=== PATIENT | male | born 1940 | race Caucasian/White ===

== ENCOUNTER 2016-06-23 16:10 | Inpatient (IN) | payer MEDICARE ==
[~2016-06-23] VITALS: Ht 175.2 cm; Wt 70.0 kg
--- NOTE | ~2016-06-23 | PR ---
[place], [place] PROGRESS NOTE NAME: MILTON DIALLO [facility] #: [id number] UNIT #: [id number] ROOM: 523 DOCTOR: SAMMI ARTHUR MD BIRTHDATE: [birth year] DOS: 06/25/2016 SUBJECTIVE: The patient is about the same, does not have any new changes. He still has a cough and shortness of breath. PHYSICAL EXAMINATION: VITAL SIGNS: Blood pressure is 105/54, pulse of 102, respirations 20, temperature 97.3. LUNGS: Diminished breath sounds. HEART: Regular. ABDOMEN: Obese, soft. PEG tube in place. EXTREMITIES: Without any edema. CT of the chest was abnormal with a large cavitary mass with extension suggestive of lymphangitic spread of the tumor. ASSESSMENT AND PLAN: 1. The patient admitted with acute hypoxic respiratory failure from underlying lymphangitic pneumonia from postobstructive pneumonia from underlying malignancy. The patient is on IV antibiotics, which I will continue. 2. CT of the chest showing 5.9 cm cavitary mass. Overall prognosis remains poor and guarded. I have not given the patient the news yet, wait for the family to come, I will discuss with them first as regards to what they would like me to do. 3. Adult failure to thrive. The patient is getting weaker and may benefit from short-term longterm care. PT/OT and social service consult is obtained. SAMMI ARTHUR MD CM:PNTRANS [phone] SAMMI ARTHUR MD 08/02/16 1419 interface
--- NOTE | ~2016-06-23 | PR ---
[place], [place] PROGRESS NOTE [facility] [id number] UNIT #: [id number] ROOM: 523 DOCTOR: SAMMI ARTHUR MD BIRTHDATE: [birth year] DOS: SUBJECTIVE: The patient is doing fine without any new complaints, but he continues to be weak and complains of not feeling that great after being in the hospital on antibiotics for several days. OBJECTIVE: VITAL SIGNS: Graphic trend shows pressure 103/61, pulse of 115, respirations 20, temperature 98.1. LUNGS: Clear. HEART: Irregular. ABDOMEN: Soft. EXTREMITIES: Without any edema. PEG tube in place. ASSESSMENT AND PLAN: 1. 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 Overall, prognosis remains poor and guarded. Discussed with the patient this morning. Hospice was advised. We will ask hospice to see him in sometime next week and arrangements will be made. 2. Lymphangitic pneumonia, on IV antibiotics, which will be continued. SAMMI ARTHUR MD CM:PNTRANS [phone] SAMMI ARTHUR MD 06/26/16 2154 interface
--- NOTE | ~2016-06-23 | DS ---
[place], [place] DISCHARGE SUMMARY NAME: MILTON DIALLO UNIT #: [id number] ROOM: 523 DOCTOR: SAMMI ARTHUR MD BIRTHDATE: [birth year] DOS: 06/28/2016 DIAGNOSES: 1. 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 2. Recent PEG tube placement. 3. Lymphangitis pneumonia. 4. Acute hypoxic respiratory failure. 5. Cardiomyopathy without any evidence of CHF. 6. Coronary artery disease status post CABG. HOSPITAL COURSE: The patient is a 75-year-old, known to us. He was seen in the office last week. He was found to have hypoxic respiratory failure, was prescribed oxygen and antibiotics. A chest x-ray was ordered, which showed a left upper lobe pneumonia and the patient therefore was admitted. This most likely is Gram-negative. After admission, the patient was placed on IV antibiotics, oxygen supplementation and breathing treatments. CT of the chest was ordered for confirmation. The CT chest showed a large almost 5.9 cm mass with cavitation, which extends into the hilum as well as the anterior chest wall, this most likely is underlying mets to the lungs from the CA of the esophagus. He has not been eating and has been getting PEG tube feeding 24 hours here because his GI doctor did advise that he should not be eating any food because of recent surgery. The patient is overall stable and improved. Condition was discussed with the patient as well as the family and he has agreed to go on hospice. Social service has been consulted for that and the patient should be able to go home once the hospice is arranged. DISCHARGE MEDICATIONS: Will be the same as on home medications, which will be aspirin 325, DuoNeb q.i.d., Asmanex daily, MiraLax 17 grams daily, lisinopril 1.25 daily, metoprolol 12.5 daily, Plavix 75 daily, atorvastatin 40 daily, Robitussin 10 mL q.4, Remeron 30 at bedtime. [place], [place] DISCHARGE SUMMARY NAME: MILTON DIALLO UNIT #: [id number] ROOM: 523 DOCTOR: SAMMI ARTHUR MD BIRTHDATE: [birth year] SAMMI ARTHUR MD CM:MIAN [phone] SAMMI ARTHUR MD 06/28/16 1135 interface
--- NOTE | ~2016-06-23 | PR ---
[place], [place] PROGRESS NOTE [id number] UN[facility] #: [id number] ROOM: 523 DOCTOR: SAMMI ARTHUR MD BIRTHDATE: [birth year] DOS: SUBJECTIVE: The patient is about the same, does not have any new complaints. OBJECTIVE: VITAL SIGNS: Graphic trend shows a pressure of 94/54, pulse of 110, respirations 22, temperature 97.6. LUNGS: Diminished breath sounds, clear. HEART: Irregular. ABDOMEN: Soft, scaphoid with the PEG tube in place. EXTREMITIES: Without any edema. ASSESSMENT AND PLAN: 1. CA esophagus, status post chemoradiation. 2. Mets to the lungs. The patient to go on hospice care to home. 3. COPD with acute hypoxic respiratory failure. Oxygen supplementation has been ordered as well as tube feeding. The patient is encouraged to eat pudding and ice cream. SAMMI ARTHUR MD CM:PNTRANS [phone] SAMMI ARTHUR MD 06/30/16 0457 interface
--- NOTE | ~2016-06-23 | PR ---
[place], [place] PROGRESS NOTE NAME: MILTON DIALLO [facility] #: [id number] UNIT #: [id number] ROOM: 523 DOCTOR: SAMMI ARTHUR MD BIRTHDATE: [birth year] DOS: 06/27/2016 SUBJECTIVE: The patient is upset about his diagnosis. He suggested that he go back and see his oncologist, but he declined. He denies having any chest pains or palpitations this morning. He does not have any fever or chills, has a slight cough. OBJECTIVE: VITAL SIGNS: Graphic trend shows a pressure of 100/55, pulse of 103, respirations 20, temperature 98.4. LUNGS: Diminished breath sounds, clear. HEART: Regular. ABDOMEN: Soft. ASSESSMENT AND PLAN: 1. Lymphangitic pneumonia on IV antibiotics. 2. Carcinoma of the esophagus with left upper lobe cavitary mass which appears to be a metastatic change. The patient wants to be kept comfortable. We will ask hospice to see him. 3. Cardiomyopathy, stable without any evidence of congestive heart failure. SAMMI ARTHUR MD CM:PNTRANS [phone] SAMMI ARTHUR MD 06/27/161999 interface
--- NOTE | ~2016-06-23 | PR ---
[place], [place] PROGRESS NOTE NAME: MILTON DIALLO UNIT #: [id number] ROOM: 523 DOCTOR: SAMMI ARTHUR MD BIRTHDATE: [birth year] DOS: SUBJECTIVE: The patient is doing better this morning as far as emotion is concerned. He is talking a little bit more and he is agreeable to going to his house with hospice. OBJECTIVE: VITAL SIGNS: Graphic trend shows a pressure of 118/58, pulse of 110, respirations 22, temperature 97.8. LUNGS: Clear. HEART: Regular. ABDOMEN: Soft. PEG tube in place. EXTREMITIES: Without any edema. He has compression sleeves on both legs. ASSESSMENT AND PLAN: 1. 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 Overall, prognosis remains poor and guarded. 2. Laryngitic pneumonia, on antibiotics, this should be converted to p.o. The patient has agreed to go on hospice. Arrangements will be made today and then the patient to go home today. SAMMI ARTHUR MD CM:PNTRANS [phone] SAMMI ARTHUR MD 06/28/162150 interface
--- NOTE | ~2016-06-23 | WRIGHTHP ---
[place], [place] PATIENT HISTORY AND PHYSICAL EXAM NAME: MILTON DIALLO [facility] #: [id number] UNIT #: [id number] ROOM: 523 DOCTOR: SAMMI ARTHUR MD BIRTHDATE: [birth year] DOS: 06/23/2016 HISTORY OF PRESENT ILLNESS: This patient is 75 years old. The patient is very well known to us, I had seen him about a week ago at the office. He was hypoxic and short of breath. Oxygen was prescribed. Chest x-ray ordered showed left upper lobe pneumonia and so he is admitted with diagnosis of acute hypoxic respiratory failure, left upper lobe pneumonia. The patient feels a little bit better this morning. Does not have any new complaints. His mouth is very dry and seems to have a hard time communicating. PAST MEDICAL HISTORY: Significant for, 1. CA of the esophagus, status post chemoradiation. He has completed the course, status post surgery and XRT chemo. 2. Cardiomyopathy. 3. Chronic kidney disease. 4. Gastroesophageal reflux disease. 5. Coronary artery disease, status post CABG. 6. Benign hypertension. MEDICATIONS: Lisinopril 1.25, Coreg, Plavix, and aspirin. SOCIAL HISTORY: Smoking many years ago. He has quit smoking several years ago. Denies using any alcohol. PHYSICAL EXAMINATION: GENERAL: He is awake and alert and oriented, very tired looking. VITAL SIGNS: Graphic trend shows a pressure of 98/60, pulse of 117, respirations 18, temperature 97.2. LUNGS: Diminished breath sounds. No wheezes, rales or rhonchi heard. HEART: Regular. ABDOMEN: Obese, soft, nontender with a PEG tube in place. EXTREMITIES: Trace edema bilaterally. ASSESSMENT AND PLAN: 1. A 75-year-old presents with left upper lobe pneumonia. The patient is placed on IV antibiotics. Routine labs have been ordered. 2. Acute hypoxic respiratory failure. Oxygen supplementation has been prescribed along with breathing treatments. 3. Carcinoma of the esophagus, status post PEG tube placement. His surgeon does not want him to take anything by mouth, so we will increase the tube feeding q.24 hours. 4. Cardiomyopathy, compensated without any evidence of congestive heart failure this morning. 5. Electrolyte imbalance with elevated sodium and chloride. We will go ahead and increase the water intake in the PEG tube. [place], [place] PATIENT HISTORY AND PHYSICAL EXAM NAME: MILTON DIALLO UNIT #: [id number] ROOM: 523 DOCTOR: SAMMI ARTHUR MD BIRTHDATE: [birth year] SAMMI ARTHUR MD CM:HISPHYS:PATIENT HISTORY AND PHYSICAL EXAMINATION [id number] SAMMI ARTHUR MD 06/24/16 1008 interface
[~2016-06-23 16:10] MED LIST: ASMANEX HF100 MCG/Ac INH; ASPIR-TRIN325 MG PO; COLACE100 MG PO; COREG6.25 MG PO; DUONEB 3 MG/3 ML3 M1 NEB; LASIX20 MG PO; LISINOPRIL2.5 MG PO; MIRALAX17 GM PO; PERCOCET 325 MG1 TA2 PO; Zofran4 MG PO
[2016-06-23 16:30] VITALS: BP 102/50
[2016-06-23 18:08] LABS: BASO % 0.2 % (0.0-1.0); EOS # 0.1 10*3/uL (0.0-0.4); EOS % 2.2 % (1.0-4.0); HEMOGLOBIN 8.5 g/dl (14.0-18.0); IG # 0.1 10*3/uL (0.0-0.1); LYMPH # 0.5 10*3/uL (1.3-4.4); LYMPH % 10.1 % (27.0-41.0); MEAN CELL VOLUME 96.6 fl (80.0-94.0); MEAN CORPUSCULAR HGB 29.3 pg (27.0-31.0); MEAN CORPUSCULAR HGB CONC 30.4 g/dl (33.0-37.0); MEAN PLATELET VOLUME 11.2 fl (9.6-12.3); MONO # 0.3 10*3/uL (0.1-1.0); MONO % 5.5 % (3.0-9.0); NEUT # 4.1 10*3/uL (2.3-7.9); PLATELET COUNT AUTOMATED 141 10*3/uL (130-400); RED CELL DISTRI WIDTH 20.8 % (0-14.5); WHITE BLOOD COUNT 5.1 10*3/uL (4.8-10.8)
[2016-06-23 18:23] LABS: BUN 30 mg/dl (7-24); CARBON DIOXIDE 29 mmol/L (21-32); CHLORIDE 109 mmol/L (98-107); EST GLOM FILT AFRICAN AMERICAN > 60 ml/min; GLUCOSE 109 mg/dL (65-99); POTASSIUM 3.9 mmol/L (3.5-5.1); SODIUM 147 mmol/L (136-145)
[2016-06-23] MEDS ORDERED: ZESTRIL2.5 MG PO (19:42)
[2016-06-23] MEDS ORDERED: PLAVIX75 M1 PO (19:43)
[2016-06-23] MEDS ORDERED: LOPRESSOR25 MG PO (19:43)
[2016-06-23] MEDS ORDERED: ATORVASTATIN CA40 M1 PO (19:43)
[2016-06-23] MEDS ORDERED: TRIMOX,POL250 MG/5 M PO (19:45)
[2016-06-23] MEDS ORDERED: ROBITUSSIN DM120 ML PO (19:46)
[2016-06-23 20:00] VITALS: BP 116/70; BP 89/70
[2016-06-24] VITALS: BP 110/50
[2016-06-24 08:00] VITALS: BP 98/60
[2016-06-24] MEDS ORDERED: REMERON30 M1 PO (11:41)
[2016-06-24 12:00] VITALS: BP 101/61
[2016-06-24 16:00] VITALS: BP 137/62
[2016-06-24 20:00] VITALS: BP 112/62
[2016-06-25] VITALS: BP 105/54
[2016-06-25 08:00] VITALS: BP 118/60
[2016-06-25 09:18] LABS: EST GLOM FILT AFRICAN AMERICAN > 60 ml/min
[2016-06-25 12:00] VITALS: BP 116/71
[2016-06-25 16:00] VITALS: BP 106/66
[2016-06-25 20:00] VITALS: BP 100/64
[2016-06-26] VITALS: BP 103/61
[2016-06-26 07:00] LABS: BUN 20 mg/dl (7-24); EST GLOM FILT AFRICAN AMERICAN > 60 ml/min
[2016-06-26 08:00] VITALS: BP 106/58
[2016-06-26 12:00] VITALS: BP 122/66
[2016-06-26 16:00] VITALS: BP 98/59
[2016-06-26 20:00] VITALS: BP 105/58
[2016-06-27] VITALS: BP 94/50
[2016-06-27 05:00] VITALS: BP 100/55
[2016-06-27 08:00] VITALS: BP 123/66
[2016-06-27 12:00] VITALS: BP 125/77
[2016-06-27 16:00] VITALS: BP 120/52
[2016-06-27 20:00] VITALS: BP 137/50
[2016-06-28] VITALS: BP 100/60
[2016-06-28 08:00] VITALS: BP 118/58
[2016-06-28 12:00] VITALS: BP 118/60
[2016-06-28 16:00] VITALS: BP 118/60
[2016-06-28 20:00] VITALS: BP 101/56
[2016-06-29] VITALS: BP 94/54
[2016-06-29 08:00] VITALS: BP 95/54
[2016-06-29 08:08] LABS: BUN 17 mg/dl (7-24); EST GLOM FILT AFRICAN AMERICAN > 60 ml/min
[2016-06-29 11:52] VITALS: BP 104/58
== END 2016-06-29 14:08 | disposition hospice, home (50) | DRG 177 ==
LOC: 5E 16:10
PROVIDERS: Internal Medicine
DX: J15.6 Pneumonia due to other Gram-negative bacteria (principal); J96.01 Acute respiratory failure with hypoxia; C15.9 Malignant neoplasm of esophagus, unspecified; C78.00 Secondary malignant neoplasm of unspecified lung; I42.9 Cardiomyopathy, unspecified; J44.9 Chronic obstructive pulmonary disease, unspecified; I89.1 Lymphangitis; I12.9 Hypertensive chronic kidney disease with stage 1 through stage 4 chronic kidney disease, or unspecified chronic kidney disease; K21.9 Gastro-esophageal reflux disease without esophagitis; I25.10 Atherosclerotic heart disease of native coronary artery without angina pectoris; R62.7 Adult failure to thrive; Z95.1 Presence of aortocoronary bypass graft